=== PATIENT | female | born 1965 | race Two or more races ===

== ENCOUNTER 2017-07-28 12:02 | Observation (INO) | payer OTHER ==
[~2017-07-28] VITALS: Ht 157.5 cm; Wt 59.3 kg
[~2017-07-28 12:02] MED LIST changes: -PANT40 PO
[2017-07-29] MEDS ORDERED: PANT40 PO (15:31)
== END 2017-07-29 16:14 | disposition home or self-care (01) ==
LOC: ER 12:02 → MEDS 14:52
PROVIDERS: Internal Medicine Gastroenterology
PROC: 0D757ZZ Dilation of Esophagus, Via Natural or Artificial Opening (ICD-10-PCS; principal; 2017-07-29 07:00)
PROC: 0D598ZZ Destruction of Duodenum, Via Natural or Artificial Opening Endoscopic (ICD-10-PCS; principal; 2017-07-29 07:00)
DX: K22.2 Esophageal obstruction (principal); K31.811 Angiodysplasia of stomach and duodenum with bleeding; I10 Essential (primary) hypertension; F10.10 Alcohol abuse, uncomplicated; F17.210 Nicotine dependence, cigarettes, uncomplicated; Z88.1 Allergy status to other antibiotic agents; Z88.6 Allergy status to analgesic agent; Z88.0 Allergy status to penicillin; Z79.899 Other long term (current) drug therapy
CPT/HCPCS: 36415; 96374; 96375; 96376; 99285; C9113; G0378; J7050; J7120

== ENCOUNTER → 2017-07-28 | Outpatient (CLI) | payer OTHER ==
[~2017-07-28] MED LIST: CLIN150 PO; DIVA500EC PO; IBUP200 PO; NAPR375 PO; OXYACE7.5T PO; PANT40 PO; PROM25 PO; VERA120ERB PO
[2017-07-28 10:41] LABS: BASOPHILS ABSOLUTE AUTO 0.04 K/mm3 (0.00-0.23); BASOPHILS PERCENT AUTO 1 % (0-2); EOSINOPHILS PERCENT AUTO 0 % (0-6); Hematocrit 46.3 % (33.0-51.0); Hemoglobin 15.6 g/dL (11.5-16.0); IMMATURE GRAN ABSOLUTE AUTO 0.01 K/mm3 (0.00-0.10); IMMATURE GRAN PERCENT AUTO 0 % (0-1); LYMPHOCYTES ABSOLUTE AUTO 1.47 K/mm3 (0.84-5.20); LYMPHOCYTES PERCENT AUTO 28 % (21-46); MONOCYTES ABSOLUTE AUTO 0.47 K/mm3 (0.16-1.47); MONOCYTES PERCENT AUTO 9 % (4-13); Mean Corpuscular HGB Conc 33.7 g/dL (31.5-36.5); Mean Corpuscular Volume 92 fL (80-100); Mean Platelet Volume 10.1 fL (9.1-12.4); NEUTROPHILS ABSOLUTE AUTO 3.31 K/mm3 (1.96-9.15); NEUTROPHILS PERCENT AUTO 62 % (41-73); Platelet Count 230 K/mm3 (150-400); RDW Coefficient Variation 12.4 % (11.7-14.2); RDW Standard Deviation 41.5 fL (35.1-46.3); Red Blood Cell Count 5.03 M/mm3 (3.80-5.20)
[2017-07-28 10:50] LABS: Alanine Aminotransfer (ALT/SGP 24 U/L (12-78); Albumin, Blood 3.9 g/dL (3.4-5.0); Alk Phos 104 U/L (40-126); Anion Gap 8 mmol/L (6-16); Aspartate Aminotrans (AST/SGOT 13 U/L (12-37); Bilirubin, Total 0.4 mg/dL (0.1-1.0); Blood Urea Nitrogen 11 mg/dL (8-24); Bun/Creatinine Ratio 15.1 (12.0-20.0); CO2, Blood 31 mmol/L (21-32); Calcium, Blood 8.9 mg/dL (8.5-10.1); Chloride, Blood 104 mmol/L (98-108); Creatinine, Blood 0.73 mg/dL (0.40-1.00); Glomerular Filtration Rate >60 (60-); Glucose, Blood 86 mg/dL (70-99); Potassium, Blood 4.1 mmol/L (3.5-5.5); Sodium, Blood 143 mmol/L (136-145); Total Protein, Blood 7.9 g/dL (6.4-8.2)
== END | disposition home or self-care (01) ==
LOC: LAB SHORT 10:35 → LAB EV 10:35
PROVIDERS: Physician Assistant
DX: K92.0 Hematemesis (principal)
CPT/HCPCS: 80053; 85025

== ENCOUNTER 2020-05-03 09:40 | Observation (INO) | payer OTHER ==
[~2020-05-03] VITALS: Ht 157.5 cm; Wt 63.1 kg
[~2020-05-03 09:40] MED LIST changes: -DIVA500EC PO
[2020-05-03 10:47] LABS: BASOPHILS ABSOLUTE AUTO 0.04 K/mm3 (0.00-0.23); BASOPHILS PERCENT AUTO 1 % (0-2); EOSINOPHILS PERCENT AUTO 0 % (0-6); Hematocrit 47.8 % (33.0-51.0); Hemoglobin 15.9 g/dL (11.5-16.0); IMMATURE GRAN ABSOLUTE AUTO 0.01 K/mm3 (0.00-0.10); IMMATURE GRAN PERCENT AUTO 0 % (0-1); LYMPHOCYTES ABSOLUTE AUTO 1.48 K/mm3 (0.84-5.20); LYMPHOCYTES PERCENT AUTO 20 % (21-46); MONOCYTES ABSOLUTE AUTO 0.59 K/mm3 (0.16-1.47); MONOCYTES PERCENT AUTO 8 % (4-13); Mean Corpuscular HGB 30.8 pg (26.0-34.0); Mean Corpuscular HGB Conc 33.3 g/dL (31.5-36.5); Mean Corpuscular Volume 93 fL (80-100); Mean Platelet Volume 10.7 fL (9.1-12.4); NEUTROPHILS ABSOLUTE AUTO 5.25 K/mm3 (1.96-9.15); NEUTROPHILS PERCENT AUTO 71 % (41-73); Platelet Count 230 K/mm3 (150-400); RDW Coefficient Variation 12.2 % (11.7-14.2); RDW Standard Deviation 41.7 fL (35.1-46.3); Red Blood Cell Count 5.17 M/mm3 (3.80-5.20); White Blood Cell Count 7.37 K/mm3 (4.00-11.30)
[2020-05-03 11:03] LABS: Alanine Aminotransfer (ALT/SGP 26 U/L (12-78); Albumin, Blood 4.1 g/dL (3.4-5.0); Albumin/Globulin Ratio 1.1 (0.8-1.8); Alk Phos 91 U/L (50-136); Anion Gap 2 mmol/L (6-16); Aspartate Aminotrans (AST/SGOT 11 U/L (12-37); Bilirubin, Total 0.4 mg/dL (0.1-1.0); Blood Urea Nitrogen 11 mg/dL (8-24); Bun/Creatinine Ratio 19.5 (12.0-20.0); CO2, Blood 33 mmol/L (21-32); Calcium, Blood 9.3 mg/dL (8.5-10.1); Chloride, Blood 106 mmol/L (98-108); Creatinine, Blood 0.56 mg/dL (0.40-1.00); Globulin, Blood 3.7 g/dL (2.2-4.0); Glomerular Filtration Rate >60 (60-); Glucose, Blood 93 mg/dL (70-99); Potassium, Blood 3.7 mmol/L (3.5-5.5); Sodium, Blood 141 mmol/L (136-145); Total Protein, Blood 7.8 g/dL (6.4-8.2); Troponin I 0.094 ng/mL (0.000-0.040)
[2020-05-03] MEDS ORDERED: DEPAKOTE ER500 M1 PO (13:43)
[2020-05-03] MEDS ORDERED: PANT40 PO (13:43)
[2020-05-03] MEDS ORDERED: ATOR10 PO (13:44)
[2020-05-03] MEDS ORDERED: Buspirone HCl15 MG PO (13:44)
[2020-05-03] MEDS ORDERED: AMLO10 PO (13:44)
[2020-05-03] MEDS ORDERED: CALCIUM PO (13:45)
[2020-05-03 16:13] LABS: Adenovirus Not Detected (NOT DETECT); Coronavirus 229E Not Detected (NOT DETECT); Coronavirus HKU1 Not Detected (NOT DETECT); Coronavirus NL63 Not Detected (NOT DETECT); Coronavirus OC43 Not Detected (NOT DETECT); Human Metapneumovirus Not Detected (NOT DETECT); Human Rhinovirus/Enterovirus Not Detected (NOT DETECT); Influenza A/2009-H1 Not Detected (NOT DETECT); Influenza A/H1 Not Detected (NOT DETECT); Influenza A/H3 Not Detected (NOT DETECT); Influenza B Not Detected (NOT DETECT); Parainfluenza Virus 1 Not Detected (NOT DETECT); Parainfluenza Virus 2 Not Detected (NOT DETECT); Parainfluenza Virus 3 Not Detected (NOT DETECT); SARS-Cov-2 (COVID-19), BioFire Not Detected (NOT DETECT)
[2020-05-03 16:14] LABS: Bordetella pertussis Not Detected (NOT DETECT); Chlamydophila pneumoniae Not Detected (NOT DETECT); Mycoplasma pneumoniae Not Detected (NOT DETECT); Parainfluenza Virus 4 Not Detected (NOT DETECT); Respiratory Syncytial Virus Not Detected (NOT DETECT)
--- NOTE | 2020-05-03 18:00 | NUR ---
NEW ER ADMIT, ARRIVE TO RM 363 APPROX 1545. SHE IS A/O X4, STATE REASON FOR HOSP INCREASING SOB, PLEURITIC PAIN. STATE THOUGHT SHE WAS GETTING BRONCHITIS, STATES HX CHR BRONCHITIS APPROX 2 TIMES/YEAR. STATE BREATHING HAS IMPROVED FOLLOWING ER TX. DR JOHANSEN ORDER IV SOLUMEDROL 250 MG NOW, IV ANTIBX LEVAQUIN 750MG. PT DECLINE PNEUMO VAC. RESP PANEL NEGATIVE. LUNGS ARE SOMEWHAT COARSE W FAINT EXP WHEEZE, ORDER ALBUTEROL NEB. BIOX 90-94% RA. SHE STATE CHR NONPROD COUGH, STATE CURRENT EVERYDAY SMOKER. TROP MILDLY ELEVATED 0.082, ORDER TELE MX OVERNITE, HX MS & CARDIAC ABLATION 2008. PT IS SBA TO BR, GAIT STEADY. SHE STATE HX OSCAR HOWEVER DECLINES HOSP CPAP TONITE, RT BRING RELEASE FORM, SIGNED BY PT. VSS.
--- NOTE | 2020-05-04 04:49 | NUR ---
SUMMARY: A/OX4, CALLS APPROPRIATELY AND WAS SBA PER PT REQUEST FOR ASSIST W/IV POLE. D5 1/2 NS INFUSES AT 100 ML/HR. SHE OCC REPORTS VERY MILD STERNAL PAIN THAT RESOLVES SPONTANEOUSLY AND REQUIRES NO PRN MEDS. SHE'S DENIES ALL OTHER S/S RESP/CARDIAC DISTRESS AND TROPS HAVE TRENDED DOWNWARD. PT TYPICALLY WEARS HOME CPAP BUT REFUSED OURS AND TOLERATED RA W/SPO2 WNL. RESPS E/U AND NO S/S DYSPNEA. PT REMAINS NSR W/PVC'S AT 80'S-90'S BPM ON TELEMETRY. VSS/AFEBRILE AND NO ACUTE CHANGES. MED RECONCILIATION NEEDS COMPLETED W/PAPERWORK FAXED TO PHARMACY, WILL ENSURE DAY STAFF ARE AWARE. WCTM AND REPORT TO DAY RN.
[2020-05-04 04:56] LABS: BASOPHILS PERCENT AUTO 0 % (0-2); EOSINOPHILS PERCENT AUTO 0 % (0-6); Hemoglobin 14.1 g/dL (11.5-16.0); IMMATURE GRAN ABSOLUTE AUTO 0.02 K/mm3 (0.00-0.10); IMMATURE GRAN PERCENT AUTO 0 % (0-1); LYMPHOCYTES ABSOLUTE AUTO 0.43 K/mm3 (0.84-5.20); LYMPHOCYTES PERCENT AUTO 8 % (21-46); MONOCYTES ABSOLUTE AUTO 0.04 K/mm3 (0.16-1.47); MONOCYTES PERCENT AUTO 1 % (4-13); Mean Corpuscular HGB 29.6 pg (26.0-34.0); Mean Corpuscular Volume 92 fL (80-100); NEUTROPHILS ABSOLUTE AUTO 4.72 K/mm3 (1.96-9.15); NEUTROPHILS PERCENT AUTO 91 % (41-73); Platelet Count 198 K/mm3 (150-400); RDW Coefficient Variation 11.9 % (11.7-14.2); Red Blood Cell Count 4.77 M/mm3 (3.80-5.20); White Blood Cell Count 5.21 K/mm3 (4.00-11.30)
[2020-05-04 05:20] LABS: Alanine Aminotransfer (ALT/SGP 28 U/L (12-78); Albumin, Blood 3.5 g/dL (3.4-5.0); Alk Phos 79 U/L (50-136); Anion Gap 9 mmol/L (6-16); Aspartate Aminotrans (AST/SGOT 7 U/L (12-37); Bilirubin, Total 0.3 mg/dL (0.1-1.0); Blood Urea Nitrogen 13 mg/dL (8-24); Bun/Creatinine Ratio 22.9 (12.0-20.0); CO2, Blood 25 mmol/L (21-32); Calcium, Blood 8.9 mg/dL (8.5-10.1); Chloride, Blood 107 mmol/L (98-108); Creatinine, Blood 0.57 mg/dL (0.40-1.00); Globulin, Blood 3.6 g/dL (2.2-4.0); Glomerular Filtration Rate >60 (60-); Glucose, Blood 227 mg/dL (70-99); Potassium, Blood 3.9 mmol/L (3.5-5.5); Sodium, Blood 141 mmol/L (136-145); Total Protein, Blood 7.1 g/dL (6.4-8.2)
--- NOTE | 2020-05-04 18:35 | NUR ---
PT RESTING IN BED EATING DINNER AFTER MEDICATION ADMIN. PT IS ALERT AND ORIENTED X4, IV LINE WNL AND INFUSING. PT MADE NO COMPLAINTS OF STERNAL PAIN OR SOB THIS SHIFT. STAFF WILL CONT. TO MONITOR.
--- NOTE | 2020-05-04 22:39 | NUR ---
ADMIT: 05/03/20 DISCHARGE: DX: chest pain CC: [email or web address] PIERRE CALL: RESIDENCE: home CAREGIVER: PRAVEEN DING ([place]) DX: copd, hs myocardial infarct, htn, sleep apnea, smoker DME: no record CCM: no record HOME HEALTH: no record SUMMARY ADMIT 05/03/20 05/04/20 STRESS TEST AND CAT SCAN ORDERED BY DR BOB. ETA DISCHARGE PENDING TEST RESULTS Saturday. MET WITH PATIENT, DISCUSSED CARE COORDINATION, WILL FOLLOW FOR DISCHARGE PLANNING. CP ASSESSMENT AND RECOMMENDATIONS: 1. Pleuritic chest pain. The patient has been noted to have a mild bump in her troponin. She does not have hypoxemia. She does not have infiltrate. She does give a history that is certainly suggestive of infection given her history of rigors and myalgia. We will follow through with echocardiogram. Empiric antibiotic therapy has been added pending result of all her followup testing. Disposition will be made tomorrow in this regard. 2. Chronic obstructive pulmonary disease. Bronchodilators and Solu-Medrol were given,
[2020-05-05] MEDS ORDERED: ALBU90OI INH (03:29)
[2020-05-05] MEDS ORDERED: CODACE30 PO (03:32)
--- NOTE | 2020-05-05 03:54 | NUR ---
SHIFT SUMMARY PATIENT HAD NO ACUTE CHANGES OBSERVED. AXOX 3 AND INDEPENDENT IN ROOM. PIV REMAINS INTACT. D5 1/2 NS INFUSING AT 100 mL/HR. VSS/AFEBRILE. DENIES CHEST PAIN, SOB, AND N/V. FRETTED INSTRUMENTS INSPECTOR REPORTS NSR @ 85. IV SOLU-MEDROL GIVEN PER EMAR. COOPERATIVE WITH CARE. CALL LIGHT IN REACH. BED IN LOWEST POSITION. WILL CONTINUE TO MONITOR UNTIL DAY SHIFT NURSE ASSUMES CARE.
[2020-05-05 05:05] LABS: BASOPHILS ABSOLUTE AUTO 0.03 K/mm3 (0.00-0.23); BASOPHILS PERCENT AUTO 0 % (0-2); EOSINOPHILS PERCENT AUTO 0 % (0-6); Hematocrit 40.7 % (33.0-51.0); Hemoglobin 13.4 g/dL (11.5-16.0); IMMATURE GRAN PERCENT AUTO 1 % (0-1); LYMPHOCYTES ABSOLUTE AUTO 0.71 K/mm3 (0.84-5.20); LYMPHOCYTES PERCENT AUTO 4 % (21-46); MONOCYTES ABSOLUTE AUTO 0.63 K/mm3 (0.16-1.47); MONOCYTES PERCENT AUTO 4 % (4-13); Mean Corpuscular HGB 30.7 pg (26.0-34.0); Mean Corpuscular HGB Conc 32.9 g/dL (31.5-36.5); Mean Corpuscular Volume 93 fL (80-100); Mean Platelet Volume 11.4 fL (9.1-12.4); NEUTROPHILS ABSOLUTE AUTO 15.39 K/mm3 (1.96-9.15); NEUTROPHILS PERCENT AUTO 91 % (41-73); Platelet Count 198 K/mm3 (150-400); RDW Coefficient Variation 12.4 % (11.7-14.2); RDW Standard Deviation 42.7 fL (35.1-46.3); Red Blood Cell Count 4.37 M/mm3 (3.80-5.20); White Blood Cell Count 16.86 K/mm3 (4.00-11.30)
[2020-05-05 05:30] LABS: Anion Gap 6 mmol/L (6-16); Blood Urea Nitrogen 12 mg/dL (8-24); CO2, Blood 27 mmol/L (21-32); Calcium, Blood 8.7 mg/dL (8.5-10.1); Chloride, Blood 109 mmol/L (98-108); Creatinine, Blood 0.52 mg/dL (0.40-1.00); Glomerular Filtration Rate >60 (60-); Glucose, Blood 155 mg/dL (70-99); Magnesium, Blood 2.2 mg/dL (1.6-2.4); Potassium, Blood 3.9 mmol/L (3.5-5.5); Sodium, Blood 142 mmol/L (136-145)
[2020-05-05] MEDS ORDERED: LEVO750 PO (16:52)
[2020-05-05] MEDS ORDERED: DIVA500ER PO (16:52)
[2020-05-05] MEDS ORDERED: PRED20 PO (16:53)
--- NOTE | 2020-05-05 18:26 | NUR ---
05/05/[address] Richard, Follow up [place] peoples office or by telephone. no telehealth. No [place] follow up appt. Patient has ride from [place], can pickle cutter new meds if needed. Has insurance through [facility] that covers her meds and medical. Does not need medical equipment in the home. Please call her for transition of care at home. cp
--- NOTE | 2020-05-05 19:17 | NUR ---
PATIENT DISCHARGE: PATIENT DISCHARGED TO HOME THIS SHIFT. MEDICATION RECONCILIATION COMPLETED; MED LSIT CALLED TO [facility]. DISCHARGE EDUCATION COMPLETED WITH PATIENT. PATIENT TRANSPORTED TO EXIT BY [facility] STAFF WITH WHEELCHAIR AT 1800. PATIENT DEPARTED [facility] VIA PRIVATE AUTO.
== END 2020-05-05 18:15 | disposition home or self-care (01) ==
LOC: ER 09:40 → MEDS 09:41
PROVIDERS: Emergency Medicine; Hospitalist; ADMIT Internal Medicine
DX: R07.81 Pleurodynia (principal); R77.8 Other specified abnormalities of plasma proteins; J44.1 Chronic obstructive pulmonary disease with (acute) exacerbation; I10 Essential (primary) hypertension; I25.10 Atherosclerotic heart disease of native coronary artery without angina pectoris; G47.33 Obstructive sleep apnea (adult) (pediatric); G40.909 Epilepsy, unspecified, not intractable, without status epilepticus; F17.200 Nicotine dependence, unspecified, uncomplicated; F41.9 Anxiety disorder, unspecified; E78.5 Hyperlipidemia, unspecified; K21.9 Gastro-esophageal reflux disease without esophagitis; J98.11 Atelectasis; Z88.6 Allergy status to analgesic agent; Z88.1 Allergy status to other antibiotic agents; Z88.0 Allergy status to penicillin; Z88.8 Allergy status to other drugs, medicaments and biological substances; Z95.1 Presence of aortocoronary bypass graft; Z79.899 Other long term (current) drug therapy; Z20.822 Contact with and (suspected) exposure to COVID-19
CPT/HCPCS: 0202U; 36415; 71045; 71047; 71260; 78452; 80048; 80053; 83735; 84145; 84484; 85025; 85379; 87040; 93005; 93010; 93017; 93306; 94640; 96365; 96366; 96372; 96375; 96376; 99285-25; A9270; A9500; G0378; J0280; J1650; J1956; J2785; J2920; J2930; J7042; Q9967

== ENCOUNTER 2020-06-21 10:45 | Emergency (ER) | payer OTHER ==
[~2020-06-21] VITALS: Ht 157.5 cm; Wt 61.2 kg
[~2020-06-21 10:45] MED LIST changes: +ALBU90OI INH; +AMLO10 PO; +ATOR10 PO; +Buspirone HCl15 MG PO; +CALCIUM PO; +CODACE30 PO; +DEPAKOTE ER500 M1 PO; +DIVA500ER PO; +LEVO750 PO; +PANT40 PO; +PRED20 PO
[2020-06-21 11:16] LABS: BASOPHILS ABSOLUTE AUTO 0.04 K/mm3 (0.00-0.23); BASOPHILS PERCENT AUTO 1 % (0-2); EOSINOPHILS PERCENT AUTO 0 % (0-6); Hematocrit 45.4 % (33.0-51.0); IMMATURE GRAN ABSOLUTE AUTO 0.01 K/mm3 (0.00-0.10); IMMATURE GRAN PERCENT AUTO 0 % (0-1); LYMPHOCYTES ABSOLUTE AUTO 1.64 K/mm3 (0.84-5.20); LYMPHOCYTES PERCENT AUTO 22 % (21-46); MONOCYTES ABSOLUTE AUTO 0.57 K/mm3 (0.16-1.47); MONOCYTES PERCENT AUTO 8 % (4-13); Mean Corpuscular HGB 30.7 pg (26.0-34.0); Mean Corpuscular Volume 93 fL (80-100); Mean Platelet Volume 10.6 fL (9.1-12.4); NEUTROPHILS ABSOLUTE AUTO 5.35 K/mm3 (1.96-9.15); NEUTROPHILS PERCENT AUTO 70 % (41-73); Platelet Count 211 K/mm3 (150-400); RDW Coefficient Variation 11.9 % (11.7-14.2); RDW Standard Deviation 40.7 fL (35.1-46.3); Red Blood Cell Count 4.89 M/mm3 (3.80-5.20); White Blood Cell Count 7.61 K/mm3 (4.00-11.30)
[2020-06-21 11:47] LABS: Alanine Aminotransfer (ALT/SGP 20 U/L (12-78); Albumin, Blood 3.9 g/dL (3.4-5.0); Albumin/Globulin Ratio 1.1 (0.8-1.8); Alk Phos 97 U/L (50-136); Anion Gap 1 mmol/L (6-16); Aspartate Aminotrans (AST/SGOT 10 U/L (12-37); Bilirubin, Total 0.2 mg/dL (0.1-1.0); Blood Urea Nitrogen 12 mg/dL (8-24); Bun/Creatinine Ratio 19.6 (12.0-20.0); CO2, Blood 35 mmol/L (21-32); Calcium, Blood 9.4 mg/dL (8.5-10.1); Chloride, Blood 106 mmol/L (98-108); Creatinine, Blood 0.61 mg/dL (0.40-1.00); Globulin, Blood 3.6 g/dL (2.2-4.0); Glomerular Filtration Rate >60 (60-); Glucose, Blood 108 mg/dL (70-99); Potassium, Blood 3.9 mmol/L (3.5-5.5); Sodium, Blood 142 mmol/L (136-145); Total Protein, Blood 7.5 g/dL (6.4-8.2)
[2020-06-21] MEDS ORDERED: PROM25 PO (11:59)
[2020-06-21] MEDS ORDERED: MECL25 PO (11:59)
== END 2020-06-21 12:34 | disposition home or self-care (01) ==
LOC: ER 10:45
PROVIDERS: Emergency Medicine
DX: H81.10 Benign paroxysmal vertigo, unspecified ear (principal); Z79.899 Other long term (current) drug therapy; Z79.52 Long term (current) use of systemic steroids
CPT/HCPCS: 36415; 70450; 80053; 85025; 93005; 93010; 99284-25; A9270

== ENCOUNTER 2021-07-23 17:30 | Emergency (ER) | payer OTHER ==
[~2021-07-23] VITALS: Ht 157.5 cm; Wt 61.2 kg
[~2021-07-23 17:30] MED LIST changes: +MECL25 PO
[2021-07-23 18:26] LABS: BASOPHILS ABSOLUTE AUTO 0.01 K/mm3 (0.00-0.23); BASOPHILS PERCENT AUTO 0 % (0-2); EOSINOPHILS PERCENT AUTO 0 % (0-6); Hematocrit 48.1 % (33.0-51.0); Hemoglobin 15.8 g/dL (11.5-16.0); IMMATURE GRAN ABSOLUTE AUTO 0.02 K/mm3 (0.00-0.10); IMMATURE GRAN PERCENT AUTO 0 % (0-1); LYMPHOCYTES ABSOLUTE AUTO 0.59 K/mm3 (0.84-5.20); LYMPHOCYTES PERCENT AUTO 8 % (21-46); MONOCYTES ABSOLUTE AUTO 0.15 K/mm3 (0.16-1.47); MONOCYTES PERCENT AUTO 2 % (4-13); Mean Corpuscular HGB 29.8 pg (26.0-34.0); Mean Corpuscular HGB Conc 32.8 g/dL (31.5-36.5); Mean Corpuscular Volume 91 fL (80-100); Mean Platelet Volume 10.6 fL (9.1-12.4); NEUTROPHILS ABSOLUTE AUTO 7.04 K/mm3 (1.96-9.15); NEUTROPHILS PERCENT AUTO 90 % (41-73); Platelet Count 264 K/mm3 (150-400); RDW Coefficient Variation 12.6 % (11.7-14.2); RDW Standard Deviation 41.5 fL (35.1-46.3); Red Blood Cell Count 5.31 M/mm3 (3.80-5.20); White Blood Cell Count 7.81 K/mm3 (4.00-11.30)
[2021-07-23 18:37] LABS: Alanine Aminotransfer (ALT/SGP 22 U/L (12-78); Albumin, Blood 3.5 g/dL (3.4-5.0); Albumin/Globulin Ratio 0.8 (0.8-1.8); Alk Phos 93 U/L (50-136); Anion Gap 3 mmol/L (6-16); Aspartate Aminotrans (AST/SGOT 26 U/L (12-37); Bilirubin, Total 0.4 mg/dL (0.1-1.0); Blood Urea Nitrogen 12 mg/dL (8-24); Bun/Creatinine Ratio 23.4 (12.0-20.0); CO2, Blood 32 mmol/L (21-32); Chloride, Blood 100 mmol/L (98-108); Creatinine, Blood 0.51 mg/dL (0.40-1.00); Globulin, Blood 4.2 g/dL (2.2-4.0); Glomerular Filtration Rate >60 (60-); Glucose, Blood 221 mg/dL (70-99); Potassium, Blood 4.7 mmol/L (3.5-5.5); Sodium, Blood 135 mmol/L (136-145); Total Protein, Blood 7.7 g/dL (6.4-8.2)
[2021-07-23 20:12] LABS: Source, Urine Clean Catch
[2021-07-23] MEDS ORDERED: AMLO10 PO (20:16)
[2021-07-23] MEDS ORDERED: GABA300 PO (20:17)
[2021-07-23] MEDS ORDERED: AZIT250 PO (20:19)
[2021-07-23 20:33] LABS: Bilirubin, Urine Neg (Neg); Blood, Urine Neg (Neg); Glucose Qualitative, Urine Neg (Neg); Ketones, Urine Neg (Neg); Leukocyte Esterase, Urine Neg (Neg); Nitrite, Urine Neg (Neg); Protein, Urine Neg (Neg); Specific Gravity, Urine 1.005 (1.003-1.022); Urobilinogen, Urine NORM (Normal)
[2021-07-23 20:34] LABS: Appearance, Urine Clear (Clear); Color, Urine Yellow (P-Yellow)
[2021-07-23] MEDS ORDERED: Prednisone50 MG PO (22:48)
== END 2021-07-23 23:36 | disposition home or self-care (01) ==
LOC: ER 17:30
PROVIDERS: Physician Assistant
DX: J44.0 Chronic obstructive pulmonary disease with (acute) lower respiratory infection (principal); J20.9 Acute bronchitis, unspecified; I10 Essential (primary) hypertension; I25.2 Old myocardial infarction; F17.200 Nicotine dependence, unspecified, uncomplicated; Z88.0 Allergy status to penicillin; Z88.1 Allergy status to other antibiotic agents; Z88.6 Allergy status to analgesic agent; Z79.899 Other long term (current) drug therapy; Z79.52 Long term (current) use of systemic steroids
CPT/HCPCS: 36415; 71045; 80053; 81003; 83690; 85025; 93005; 93010; 94644; 94664; 96374; 96375; 99284-25; J2405; J2930; J3475

== ENCOUNTER 2022-03-07 08:28 | Emergency (ER) | payer OTHER ==
[~2022-03-07] VITALS: Ht 157.5 cm; Wt 60.3 kg
[~2022-03-07 08:28] MED LIST changes: +AZIT250 PO; +GABA300 PO; +Prednisone20 MG PO; +Prednisone50 MG PO; +Zithromax250 MG PO
[2022-03-07 09:20] LABS: BASOPHILS ABSOLUTE AUTO 0.04 K/mm3 (0.00-0.23); BASOPHILS PERCENT AUTO 1 % (0-2); EOSINOPHILS ABSOLUTE AUTO 0.05 K/mm3 (0.00-0.68); EOSINOPHILS PERCENT AUTO 1 % (0-6); Hematocrit 43.7 % (33.0-51.0); Hemoglobin 14.8 g/dL (11.5-16.0); IMMATURE GRAN ABSOLUTE AUTO 0.02 K/mm3 (0.00-0.10); IMMATURE GRAN PERCENT AUTO 0 % (0-1); LYMPHOCYTES ABSOLUTE AUTO 1.01 K/mm3 (0.84-5.20); LYMPHOCYTES PERCENT AUTO 17 % (21-46); MONOCYTES PERCENT AUTO 13 % (4-13); Mean Corpuscular HGB Conc 33.9 g/dL (31.5-36.5); Mean Corpuscular Volume 92 fL (80-100); Mean Platelet Volume 10.4 fL (9.1-12.4); NEUTROPHILS ABSOLUTE AUTO 4.07 K/mm3 (1.96-9.15); NEUTROPHILS PERCENT AUTO 68 % (41-73); Platelet Count 169 K/mm3 (150-400); RDW Coefficient Variation 12.6 % (11.7-14.2); RDW Standard Deviation 42.3 fL (35.1-46.3); Red Blood Cell Count 4.77 M/mm3 (3.80-5.20); White Blood Cell Count 5.99 K/mm3 (4.00-11.30)
[2022-03-07 09:39] LABS: Albumin, Blood 3.1 g/dL (3.4-5.0); Albumin/Globulin Ratio 0.9 (0.8-1.8); Bilirubin, Total 0.5 mg/dL (0.1-1.0); Calcium, Blood 8.6 mg/dL (8.5-10.1); Creatinine, Blood 0.6 mg/dL (0.40-1.00); Globulin, Blood 3.5 g/dL (2.2-4.0); Potassium, Blood 4.3 mmol/L (3.5-5.5); Total Protein, Blood 6.6 g/dL (6.4-8.2)
[2022-03-07 09:46] LABS: Base Excess Venous 8.7 mmol/L; PCO2 Venous 47.9 mmHg (38-42); pH Blood Venous 7.44 (7.34-7.37)
[2022-03-07 10:35] LABS: Influenza B, PCR NEGATIVE (NEGATIVE); Resp Syncytial Virus, PCR NEGATIVE (NEGATIVE); SARS-Cov-2 (COVID-19) PCR, MMC NEGATIVE (NEGATIVE)
[2022-03-07 10:37] LABS: Influenza A, PCR POSITIVE (NEGATIVE)
[2022-03-07] MEDS ORDERED: BENZ100A PO (11:46)
[2022-03-07] MEDS ORDERED: PRED20 PO (11:46)
[2022-03-07] MEDS ORDERED: OSEL75CA PO (11:46)
== END 2022-03-07 12:43 | disposition home or self-care (01) ==
LOC: ER 08:28
PROVIDERS: Student in an Organized Health Care Education/Training Program
DX: J10.1 Influenza due to other identified influenza virus with other respiratory manifestations (principal); J44.1 Chronic obstructive pulmonary disease with (acute) exacerbation; I10 Essential (primary) hypertension; F17.200 Nicotine dependence, unspecified, uncomplicated; Z88.0 Allergy status to penicillin; Z88.1 Allergy status to other antibiotic agents; Z88.8 Allergy status to other drugs, medicaments and biological substances; Z79.899 Other long term (current) drug therapy; Z20.822 Contact with and (suspected) exposure to COVID-19
CPT/HCPCS: 0241U; 36415; 71045; 80053; 82803; 83880; 84484; 85025; 93005; 93010; 94640; 94644; 94664; A9270; J1885; J7030; J7512

== ENCOUNTER 2024-05-02 19:29 | Emergency (ER) | payer OTHER ==
[~2024-05-02] VITALS: Ht 157.5 cm; Wt 71.7 kg
[~2024-05-02 19:29] MED LIST changes: +BENZ100A PO; +BUSPIRONE HCL30 M1 PO; +DOXY100 PO; +OSEL75CA PO; +TRELEGY ELLIPTA INH; +Ventolin/Proventil INH; +[UNRECOGNIZED DRUG - OTHER] INH
[2024-05-02 20:08] LABS: BASOPHILS ABSOLUTE AUTO 0.01 K/mm3 (0.00-0.23); BASOPHILS PERCENT AUTO 0 % (0-2); EOSINOPHILS PERCENT AUTO 0 % (0-6); Hematocrit 50.1 % (33.0-51.0); Hemoglobin 16.6 g/dL (11.5-16.0); IMMATURE GRAN ABSOLUTE AUTO 0.02 K/mm3 (0.00-0.10); IMMATURE GRAN PERCENT AUTO 0 % (0-1); LYMPHOCYTES ABSOLUTE AUTO 1.21 K/mm3 (0.84-5.20); LYMPHOCYTES PERCENT AUTO 17 % (21-46); MONOCYTES ABSOLUTE AUTO 0.45 K/mm3 (0.16-1.47); MONOCYTES PERCENT AUTO 6 % (4-13); Mean Corpuscular HGB 29.6 pg (26.0-34.0); Mean Corpuscular HGB Conc 33.1 g/dL (31.5-36.5); Mean Corpuscular Volume 89 fL (80-100); Mean Platelet Volume 10.1 fL (9.1-12.4); NEUTROPHILS ABSOLUTE AUTO 5.66 K/mm3 (1.96-9.15); NEUTROPHILS PERCENT AUTO 77 % (41-73); Platelet Count 250 K/mm3 (150-400); Red Blood Cell Count 5.61 M/mm3 (3.80-5.20); White Blood Cell Count 7.35 K/mm3 (4.00-11.30)
[2024-05-02 20:37] LABS: Free Thyroxine 0.75 ng/dL (0.70-1.60); Magnesium, Blood 2.2 mg/dL (1.6-2.4)
[2024-05-02 20:42] LABS: Albumin, Blood 3.4 g/dL (3.4-5.0); Albumin/Globulin Ratio 0.8 (0.8-1.8); Bilirubin, Total 0.4 mg/dL (0.1-1.0); Bun/Creatinine Ratio 21.3 (12.0-20.0); Calcium, Blood 8.6 mg/dL (8.5-10.1); Creatinine, Blood 0.61 mg/dL (0.40-1.00); Globulin, Blood 4.1 g/dL (2.2-4.0); Potassium, Blood 4.3 mmol/L (3.5-5.5); Thyroid Stimulating Hormone 1.13 uIU/mL (0.360-4.800); Total Protein, Blood 7.5 g/dL (6.4-8.2)
[2024-05-02 23:00] VITALS: BP 128/87
== END 2024-05-02 23:20 | disposition home or self-care (01) ==
LOC: ER 19:29
PROVIDERS: Student in an Organized Health Care Education/Training Program
DX: R41.0 Disorientation, unspecified (principal); J44.89 Other specified chronic obstructive pulmonary disease; G47.33 Obstructive sleep apnea (adult) (pediatric); I10 Essential (primary) hypertension; I25.2 Old myocardial infarction; G40.909 Epilepsy, unspecified, not intractable, without status epilepticus; Z99.89 Dependence on other enabling machines and devices; Z88.0 Allergy status to penicillin; Z88.6 Allergy status to analgesic agent; Z88.1 Allergy status to other antibiotic agents; Z79.899 Other long term (current) drug therapy
CPT/HCPCS: 80053; 83735; 84439; 84443; 85025; 93005; 93010; 99285-25

== ENCOUNTER 2024-06-30 15:20 | Inpatient (IN) | payer OTHER ==
[~2024-06-30] VITALS: Ht 157.5 cm; Wt 77.4 kg
[2024-06-30 16:32] LABS: BASOPHILS ABSOLUTE AUTO 0.02 K/mm3 (0.00-0.23); BASOPHILS PERCENT AUTO 0 % (0-2); EOSINOPHILS ABSOLUTE AUTO 0.01 K/mm3 (0.00-0.68); EOSINOPHILS PERCENT AUTO 0 % (0-6); Hematocrit 51.8 % (33.0-51.0); Hemoglobin 16.7 g/dL (11.5-16.0); IMMATURE GRAN ABSOLUTE AUTO 0.01 K/mm3 (0.00-0.10); IMMATURE GRAN PERCENT AUTO 0 % (0-1); LYMPHOCYTES ABSOLUTE AUTO 1.27 K/mm3 (0.84-5.20); LYMPHOCYTES PERCENT AUTO 28 % (21-46); MONOCYTES ABSOLUTE AUTO 0.38 K/mm3 (0.16-1.47); MONOCYTES PERCENT AUTO 9 % (4-13); Mean Corpuscular HGB 28.9 pg (26.0-34.0); Mean Corpuscular HGB Conc 32.2 g/dL (31.5-36.5); Mean Corpuscular Volume 90 fL (80-100); NEUTROPHILS ABSOLUTE AUTO 2.79 K/mm3 (1.96-9.15); NEUTROPHILS PERCENT AUTO 62 % (41-73); RDW Coefficient Variation 14.7 % (11.7-14.2); RDW Standard Deviation 48.6 fL (35.1-46.3); Red Blood Cell Count 5.78 M/mm3 (3.80-5.20); White Blood Cell Count 4.48 K/mm3 (4.00-11.30)
[2024-06-30 16:52] LABS: Platelet Count 200 K/mm3 (150-400)
[2024-06-30 16:53] LABS: Albumin, Blood 3.3 g/dL (3.4-5.0); Albumin/Globulin Ratio 0.9 (0.8-1.8); Bilirubin, Total 0.5 mg/dL (0.1-1.0); Bun/Creatinine Ratio 10.1 (12.0-20.0); Calcium, Blood 8.8 mg/dL (8.5-10.1); Creatinine, Blood 0.59 mg/dL (0.40-1.00); Globulin, Blood 3.8 g/dL (2.2-4.0); Potassium, Blood 3.9 mmol/L (3.5-5.5); Total Protein, Blood 7.1 g/dL (6.4-8.2)
[2024-06-30] MEDS ORDERED: Albuterol 2.5 MG/3 ML VIAL INH SCH (18:20)
[2024-06-30] MEDS ORDERED: Ipratropium Bromide INH 0.02% 0.5 mg/2.5ML Vial INH SCH (18:20)
[2024-06-30] MEDS ORDERED: Azithromycin 500 MG in NS 250 ML IV ONE (20:45)
[2024-06-30] MEDS ORDERED: NS 1,000 ML IV SCH (21:20)
[2024-06-30] MEDS ORDERED: Ondansetron HCl 2 MG / ML 2ML Vial IV PRN (21:20)
[2024-06-30] MEDS ORDERED: FLU VACC TS2024-25(6MOS UP)/PF 45 MCG/0.5 ML SYRINGE IM ONE (21:25)
[2024-06-30] MEDS ORDERED: Ipratropium/Albuterol SulF 2.5-0.5MG/3 ML Amp INH SCH (21:25)
[2024-06-30] MEDS ORDERED: Albuterol 2.5 MG/3 ML VIAL INH PRN (21:25)
[2024-06-30 23:06] LABS: Base Excess Venous 8.7 mmol/L; Bicarbonate Venous 28.8 mmol/L (24.0-30.0); pH Blood Venous 7.25 (7.34-7.37)
[2024-07-01] VITALS (8 sets, daily range): BP systolic 115–137; BP diastolic 66–90
[2024-07-01] MEDS ORDERED: MethylPREDNISolone Sod Succ 125 MG Vial IV SCH
--- NOTE | 2024-07-01 02:09 | NUR ---
ASSUMPTION OF CARE @ APPROX 2336 06/30 REPORT RECIVED BY THIS RN FROM MEDICAL FLOOR RN, FIDE, PT SLIDE OVER BY MEDICAL STAFF, PT PLACED ON BIPAP UPON ARRIVAL TO UNIT, VSS, PT FORGETFULL/MOVING ALL EXTREMITIES EQUALLY AND WITH PURPOSE/PT HAVING TEMORS IN ALL EXTREMITIES THAT APEAR TO WORSEN WITH ACTIVITY, PT IS SOMNULENT BUT EASILY AWAKENS TO VERBAL STIMULI, ABLE TO ANSWER ALL THE ORIENTATION QUETIONS, ABLE TO MAKE NEEDS KNOWN, OBYES COMMANDS, LUNG SOUND CLEAR WITH DIM BASES.
[2024-07-01 04:47] LABS: Hematocrit 52.6 % (33.0-51.0); Hemoglobin 16.2 g/dL (11.5-16.0); Mean Corpuscular HGB Conc 30.8 g/dL (31.5-36.5); Mean Corpuscular Volume 91 fL (80-100); Mean Platelet Volume 10.2 fL (9.1-12.4); Platelet Count 229 K/mm3 (150-400); RDW Coefficient Variation 14.2 % (11.7-14.2); RDW Standard Deviation 47.7 fL (35.1-46.3); Red Blood Cell Count 5.78 M/mm3 (3.80-5.20); White Blood Cell Count 5.64 K/mm3 (4.00-11.30)
[2024-07-01 05:18] LABS: Bun/Creatinine Ratio 25.5 (12.0-20.0); Calcium, Blood 8.5 mg/dL (8.5-10.1); Creatinine, Blood 0.51 mg/dL (0.40-1.00); Potassium, Blood 4.4 mmol/L (3.5-5.5)
[2024-07-01 05:41] LABS: Base Excess Venous 10.1 mmol/L; Bicarbonate Venous 30.1 mmol/L (24.0-30.0); PCO2 Venous 80.2 mmHg (38-42)
[2024-07-01 05:44] LABS: pH Blood Venous 7.27 (7.34-7.37)
[2024-07-01] MEDS ORDERED: Pantoprazole Sodium 40 MG Tab PO SCH (06:00)
--- NOTE | 2024-07-01 06:12 | NUR ---
SHIFT SUMMARY PT IS SOMNULENT BUT EASILY AWAKENS TO VERBAL STIMULI, ORIENTED X4, ABLE TO MAKE NEEDS KNOWN, OBEYS COMMANDS, MOVING ALL EXTREMITIES WITH PURPOSE, PT IS FORGETFUL AT TIMES, BED ALARM ACTIVE, 2 PERSON ASSIST TO BSC WITH FWW WITH GAIT BELT, PT TREMULOUS THAT SEEMS TO WORSEN WITH ACTIVITY. CONTINUOUS SPO2, SPO2 GREATER 90% ON BIPAP 14/7/40% OR 3 L O2 VIA NC, BASELINE PT USES 2L O2 VIA NC, LUNGS SOUND CLEAR T/O WITH DIM BASES. CONTINUOUS TELE MONITORING, SINUS/SINUS TACH 90-100 S, BP STABLE WITH MAP GREATER THAN 65, PULSES PRESENT T/O. BOWEL TONES PRESENT IN ALL 4Q, ABD APPEARS MODERALTY DISTENDED PT USING BSC TO VOID, URINE NYASIA IN COLOR. BED LOWEST POSITION, CALL LIGHT IN REACH, AWAITING TO GIVE REPORT TO ONCOMING RN.
--- NOTE | 2024-07-01 07:30 | NUR ---
ASSUMPTION NOTE: THIS RN TO ASSUME CARE. PATIENT WAS GETTING A BREATHING TREATMENT WITH RT UPON WALKING IN. VITAL SIGNS TAKEN & PATIENT STABLE. PATIENT HAS CALL LIGHT WITHIN REACH & BED IN LOWEST POSITION. STATING NOTHING IS NEEDED AT THIS TIME
[2024-07-01] MEDS ORDERED: Gabapentin 300 MG Cap PO SCH (09:00)
[2024-07-01] MEDS ORDERED: Enoxaparin 40 MG/0.4 ML SYR SC SCH (09:00)
[2024-07-01] MEDS ORDERED: AmLODIPine Besylate 5 MG Tab PO SCH (09:00)
[2024-07-01] MEDS ORDERED: Lactobacil 2-S.Thermo-Bifido 1 1 Cap PO SCH (09:00)
[2024-07-01] MEDS ORDERED: Divalproex Sodium 500 MG TABCR PO SCH (09:00)
[2024-07-01] MEDS ORDERED: BusPIRone HCl 10 MG Tab PO SCH (09:00)
[2024-07-01] MEDS ORDERED: Atorvastatin 10 MG Tab PO SCH (09:00)
[2024-07-01 10:17] LABS: Base Excess Venous 9.8 mmol/L; Bicarbonate Venous 30.4 mmol/L (24.0-30.0); PCO2 Venous 71.2 mmHg (38-42); pH Blood Venous 7.31 (7.34-7.37)
[2024-07-01 16:48] LABS: Base Excess Venous 11.6 mmol/L; Bicarbonate Venous 32.7 mmol/L (24.0-30.0)
[2024-07-01 16:49] LABS: PCO2 Venous 59.6 mmHg (38-42)
--- NOTE | 2024-07-01 17:08 | NUR ---
END OF SHIFT SUMMARY: PATIENT IS ALERT AND ORIETNED X4, IS SOMULENT AT TIMES & FORGETFUL. PATIENT FIXATES AND OFTEN REPEATS HERSELF WHEN ANSWERING QUESTIONS. IS ON TELE SHOWING SINUS RYTHM TO SINUS TACH 90-110. SATTING >92% 3 LITERS VIA NASAL CANNULA WHEN SHE IS NOT WEARING THE BIPAP MACHINE AT 14/7 40% FIO2. PATIENT IS GETTING IV SOLUMEDROL. PATIENT GOT AN ECHO DONE AND AWAITING RESULTS CURRENTLY. PATIENT WAS ABLE TO GET SOME REST, HAD A BED BATH. PATIENT HAD FAMILY THORUGHOUT SHIFT AT BEDSIDE AND CALL FOR UPDATES. PATIENT HAS CALL LIGHT WITHIN REACH & BED IN LOWEST POSITION, STATING NOTHING IS NEEDED AT THIS TIME.
[2024-07-01 19:03] LABS: U Amphetamine Screen Not Detected; U Barbituate Screen Not Detected; U Benzodiazapine Screen Not Detected; U Buprenorphine Screen Not Detected; U Cannabinoids Screen Not Detected; U Cocaine Screen Not Detected; U Methadone Screen Not Detected; U Methamphetamine Screen Not Detected; U Opiates Screen Not Detected; U Oxycodone Screen Not Detected; U Phencyclidine Screen Not Detected
[2024-07-01] MEDS ORDERED: Azithromycin 500 MG in NS 250 ML IV SCH (21:00)
[2024-07-02 03:30] VITALS: BP 119/79
[2024-07-02 03:39] LABS: Base Excess Venous 11.9 mmol/L; Bicarbonate Venous 33.4 mmol/L (24.0-30.0); PCO2 Venous 55.6 mmHg (38-42); pH Blood Venous 7.42 (7.34-7.37)
[2024-07-02 04:06] LABS: BASOPHILS ABSOLUTE AUTO 0.01 K/mm3 (0.00-0.23); BASOPHILS PERCENT AUTO 0 % (0-2); EOSINOPHILS PERCENT AUTO 0 % (0-6); Hematocrit 46.5 % (33.0-51.0); Hemoglobin 14.5 g/dL (11.5-16.0); IMMATURE GRAN ABSOLUTE AUTO 0.09 K/mm3 (0.00-0.10); IMMATURE GRAN PERCENT AUTO 1 % (0-1); LYMPHOCYTES ABSOLUTE AUTO 0.48 K/mm3 (0.84-5.20); LYMPHOCYTES PERCENT AUTO 4 % (21-46); MONOCYTES ABSOLUTE AUTO 0.42 K/mm3 (0.16-1.47); MONOCYTES PERCENT AUTO 3 % (4-13); Mean Corpuscular HGB 28.5 pg (26.0-34.0); Mean Corpuscular HGB Conc 31.2 g/dL (31.5-36.5); Mean Corpuscular Volume 92 fL (80-100); Mean Platelet Volume 10.3 fL (9.1-12.4); NEUTROPHILS ABSOLUTE AUTO 12.21 K/mm3 (1.96-9.15); NEUTROPHILS PERCENT AUTO 92 % (41-73); Platelet Count 202 K/mm3 (150-400); RDW Coefficient Variation 14.5 % (11.7-14.2); RDW Standard Deviation 48.5 fL (35.1-46.3); Red Blood Cell Count 5.08 M/mm3 (3.80-5.20); White Blood Cell Count 13.21 K/mm3 (4.00-11.30)
[2024-07-02 04:30] LABS: Bun/Creatinine Ratio 29.8 (12.0-20.0); Creatinine, Blood 0.47 mg/dL (0.40-1.00); Magnesium, Blood 2.2 mg/dL (1.6-2.4); Potassium, Blood 4.8 mmol/L (3.5-5.5)
--- NOTE | 2024-07-02 06:30 | NUR ---
SHIFT SUMMARY PT IS SOMNULENT BUT EASILY AWAKENS TO VERBAL STIMULI, ORIENTED X4, ABLE TO MAKE NEEDS KNOWN, OBEYS COMMANDS, MOVING ALL EXTREMITIES WITH PURPOSE, PT IS FORGETFUL AT TIMES, BED ALARM ACTIVE, 1 PERSON ASSIST TO BSC WITH GAIT BELT, OCCASIONALLY TWITCHES THAT APPEAR IMPROVED FROM PREVIOUS SHIFT. CONTINUOUS SPO2, SPO2 GREATER 90% ON BIPAP 14/7/40% OR 3 L O2 VIA NC, BASELINE PT USES 2L O2 VIA NC/ WHILE SLEEPING WITH NC PT SPO2 DROPPED TO 70% BUT QUICKLY RECOVERED WHEN WOKEN UP, LUNGS SOUND CLEAR T/O WITH DIM BASES. CONTINUOUS TELE MONITORING, SINUS/SINUS TACH 90-100 S, PT HAD 2 RUNS OF ASYMPTOMATIC V-TACH/ 7 BEATS/ AND 5 BEATS, BP STABLE WITH MAP GREATER THAN 65, PULSES PRESENT T/O. BOWEL TONES PRESENT IN ALL 4Q, ABD APPEARS MODERALTY DISTENDED, PT DENIES NAUSEA. PT USING BSC TO VOID, URINE YELLOW IN COLOR. PT HAVING NEGATIVE DOCUMENTED FLUID BALANCE OF 54. BED LOWEST POSITION, CALL LIGHT IN REACH, AWAITING TO GIVE REPORT TO ONCOMING RN.
[2024-07-02 07:24] VITALS: BP 116/77
--- NOTE | 2024-07-02 07:25 | NUR ---
ASSUMPTION NOTE: THIS RN TO ASSUME CARE. PATIENT IS SLEEPING,EASILY AROUSABLE. VITAL SIGNS TAKEN & PATIENT STABLE. DENYING ANY CHEST PAIN OR FEELING SHORT OF BREATH. HAS CALL LIGHT WITHIN REACH & BED IN LOWEST POSITION.
--- NOTE | 2024-07-02 10:47 | NUR ---
MD RODRIGUEZ: ROUNDED AND PATIENT IS NOW MEDICAL WITH TELE STATUS. PATIENT WAS EXCITED, CAN BE WITHOUT THE BIPAP AND ONLY WEAR IT AT NIGHT.
[2024-07-02 16:13] VITALS: BP 140/77
--- NOTE | 2024-07-02 16:36 | NUR ---
TRANSFER NOTE: PATIENT WAS TRANSFERED TO MEDCIAL FLOOR VIA WHEELCHAIR WITH TELE AND PERSONAL BELONGINGS. PATIENT FAMILY WENT ALONGSIDE & RT WAS NOTIFIED OF THE MOVE. PATIENT FAMILY BROUGHT IN HOME CPAP AND WENT WITH PATIENT. PATIENT WENT WITH OXYGEN CONNECTED AT 2 LITERS VIA NASAL CANNULA.
--- NOTE | 2024-07-02 16:47 | NUR ---
ADMIT NOTE PT A&OX4. PT ADMITTED DUE TO COPD EXAC. PT REPORTS NO SOB. PT ON TELE. PT ON 3L O2 VIA N/C. PT TRANSFERED BY WHEELCHAIR. PT ORIENTED TO CALL LIGHT AND UNIT AND FALL PRECAUTIONS. PT ENTERED TO ROOM AT 1407. PT CALL LIGHT IN REACH. CONT PULSE OX ON AND IS 91%
--- NOTE | 2024-07-02 18:45 | NUR ---
SHIFT SUMMARY PT A&OX4, SOMETIMES REPEATS HERSELF AND FORGETFUL. PT ADMITTED DUE TO COPD EXAC. PT ON TELE. PT HAS CONT PULSE OX. PT ON 3L O2 VIA N/C. PT CONT OF URINE AND USES BSC. PT IN BED, BED IN LOWEST POSITION, CALL LIGHT IN REACH. NO ACUTE CHANGES. PT EATS ADEQUATE.
[2024-07-02 20:01] VITALS: BP 149/79
[2024-07-02 20:04] VITALS: BP 149/82
[2024-07-02] MEDS ORDERED: MethylPREDNISolone Sod Succ 125 MG Vial IV SCH (21:00)
[2024-07-03 00:02] VITALS: BP 139/79
--- NOTE | 2024-07-03 04:21 | NUR ---
SHIFT SUMMARY A&0X4,USES CALL LIGHT APPROPRIATELY & VOICES NEEDS, VS HAVE BEEN STABLE, HAS REQUIRED 0XYGEN AT 2L/M WITH SATS LOW TO MID 90s,LUNG SOUNDS VERY WHEEZY BUT NO ACUTE DISTRESS NOTED,CONTINUOUS OXIMERTY CONT,TELEMETRY HAS SHOWN NSR & ST THIS SHIFT. DISCUSSED RATIONALE FOR IV SOLUMEDROL. TOLERATED THIS & ALL OTHER MEDICATIONS WELL. SBA TO BEDSIDE COMMODE. DENIES ANY ISSUES WITH BLADDER OR BOWEL FUNCTION. DROPLET/CONTACT PREC CONT. D/T MRSA OF SPUTUM. PT VOICES IS ANXIOUS TO GET OUT OF HERE BY THE 2ND SO CAN GET HOME AND PAY ALL HER BILLS BY THE 3RD APPETITE IMPROVED, GIVEN H.S. SNACKS.
[2024-07-03 05:13] VITALS: BP 106/61
[2024-07-03 05:48] LABS: BASOPHILS ABSOLUTE AUTO 0.01 K/mm3 (0.00-0.23); BASOPHILS PERCENT AUTO 0 % (0-2); EOSINOPHILS PERCENT AUTO 0 % (0-6); Hematocrit 43.8 % (33.0-51.0); Hemoglobin 14.2 g/dL (11.5-16.0); IMMATURE GRAN ABSOLUTE AUTO 0.07 K/mm3 (0.00-0.10); IMMATURE GRAN PERCENT AUTO 1 % (0-1); LYMPHOCYTES ABSOLUTE AUTO 0.57 K/mm3 (0.84-5.20); LYMPHOCYTES PERCENT AUTO 5 % (21-46); MONOCYTES ABSOLUTE AUTO 0.29 K/mm3 (0.16-1.47); MONOCYTES PERCENT AUTO 2 % (4-13); Mean Corpuscular HGB 28.4 pg (26.0-34.0); Mean Corpuscular HGB Conc 32.4 g/dL (31.5-36.5); Mean Corpuscular Volume 88 fL (80-100); Mean Platelet Volume 9.9 fL (9.1-12.4); NEUTROPHILS ABSOLUTE AUTO 10.99 K/mm3 (1.96-9.15); NEUTROPHILS PERCENT AUTO 92 % (41-73); Platelet Count 208 K/mm3 (150-400); RDW Coefficient Variation 14.6 % (11.7-14.2); RDW Standard Deviation 46.5 fL (35.1-46.3); White Blood Cell Count 11.93 K/mm3 (4.00-11.30)
[2024-07-03 06:08] LABS: Bun/Creatinine Ratio 22.8 (12.0-20.0); Calcium, Blood 8.2 mg/dL (8.5-10.1); Creatinine, Blood 0.53 mg/dL (0.40-1.00); Potassium, Blood 4.3 mmol/L (3.5-5.5)
[2024-07-03 07:18] VITALS: BP 131/84
[2024-07-03 16:38] VITALS: BP 131/74
--- NOTE | 2024-07-03 18:39 | NUR ---
SHIFT SUMMARY PT A&OX4. SOMETIMES REPEAT HERSELF AND FORGETFUL. PT ADMITTED DUE TO COPD EXACERBATION. IV GOT PULLED, PUT NO IV ORDER. PT ON TELE. PT IS SBA TO BSC. PT CONT OF URINE AND BM. TELE D/C. PT ON 2.5 L OF O2 VIA N/C. PT ON CONT PULSE MONITORING, SPO2 IS 95%. PT EATS ADEQUATE. PT IN BED. BED IN LOWEST POSITION, CALL LIGHT IN REACH. NO ACUTE CHANGES DURING SHIFT, FAM/FRIENDS AT BEDSIDE DURING SHIFT. VSS.
[2024-07-03 19:59] VITALS: BP 126/73
[2024-07-04 00:34] VITALS: BP 111/65
--- NOTE | 2024-07-04 03:55 | NUR ---
SHIFT SUMM: PT IS A 59 YO FULL CODE WHO WAS ADMITTED FOR COPD EXACERBATION AND IS IN DROPLET/CONTACT PREC FOR MRSA IN THE SPUTUM. PT HAS NO IV WITH A NO IV ORDER. PT HAS AN ORDER TO DISCONTINUE TELE WELL. PT HAS BEEN USING CPAP TONIGHT AND HAS BEEN RESTING MOST OF THE SHIFT WITH A CONT PULSE OX. PT IS A BASELINE 2L NC AND HAS BEEN 2.5L NC FOR DAYSHIFT. PT IS AN EVERYDAY SMOKER BUT REFUSED NICOTINE PATCH. PT IS A SBA TO [facility] [place] AND CALLS NEEDED. PT REPORTS FEELING MUCH BETTER AND LOOKING FORWARD TO GOING HOME SHE STATES. PT HAD A SNACK THIS EVENING AND IS IN GOOD SPIRITS. PT HAS CALL LIGHT CLOSE
[2024-07-04 06:10] LABS: BASOPHILS ABSOLUTE AUTO 0.01 K/mm3 (0.00-0.23); BASOPHILS PERCENT AUTO 0 % (0-2); EOSINOPHILS PERCENT AUTO 0 % (0-6); Hematocrit 45.6 % (33.0-51.0); Hemoglobin 14.3 g/dL (11.5-16.0); IMMATURE GRAN ABSOLUTE AUTO 0.06 K/mm3 (0.00-0.10); IMMATURE GRAN PERCENT AUTO 1 % (0-1); LYMPHOCYTES PERCENT AUTO 20 % (21-46); MONOCYTES ABSOLUTE AUTO 0.94 K/mm3 (0.16-1.47); MONOCYTES PERCENT AUTO 10 % (4-13); Mean Corpuscular HGB 28.1 pg (26.0-34.0); Mean Corpuscular HGB Conc 31.4 g/dL (31.5-36.5); Mean Corpuscular Volume 90 fL (80-100); Mean Platelet Volume 10.1 fL (9.1-12.4); NEUTROPHILS ABSOLUTE AUTO 6.84 K/mm3 (1.96-9.15); NEUTROPHILS PERCENT AUTO 70 % (41-73); Platelet Count 220 K/mm3 (150-400); RDW Coefficient Variation 14.8 % (11.7-14.2); RDW Standard Deviation 48.6 fL (35.1-46.3); Red Blood Cell Count 5.09 M/mm3 (3.80-5.20); White Blood Cell Count 9.85 K/mm3 (4.00-11.30)
[2024-07-04 06:28] LABS: Calcium, Blood 8.1 mg/dL (8.5-10.1); Creatinine, Blood 0.41 mg/dL (0.40-1.00); Potassium, Blood 4.2 mmol/L (3.5-5.5)
[2024-07-04 07:18] VITALS: BP 135/83
[2024-07-04] MEDS ORDERED: PredniSONE 20 MG Tab PO SCH (09:00)
[2024-07-04] MEDS ORDERED: ALBU2.5V5 INH (11:49)
[2024-07-04] MEDS ORDERED: IPRAT-ALBUT 0.5-3 ML INH (11:52)
[2024-07-04] MEDS ORDERED: NICO2 PO (11:53)
[2024-07-04] MEDS ORDERED: PRED20 PO (11:53)
--- NOTE | 2024-07-04 12:00 | NUR ---
DISCHARGE MEDCIATIONS CLARIFIED WITH PT WHERE SHE WANTED HER DISCHARGE MEDICATIONS FAXED TO [facility] BE[facility] CLOSED THIS WEEKEND. REFUSED TO HAVE THEM FAXED ANYWHERE ELSE. CLARIFIED THAT SHE WAS NEEDING PREDNISONE. SHE STATED," I KNOW. I WILL PICK IT UP ON SATURDAY." CARE ONGOING.
--- NOTE | 2024-07-04 14:25 | NUR ---
DISCHARGE SUMMARY PT DISCHARGED HOME AT APPROX 1425. DISCHARGE PACKET REVIEWED WITH PT. THIS RN AND ANOTHER RN EDUCATED PT ON IMPORTANCE OF PICKING UP PREDNISONE TODAY TO CONTINUE ORDERED AND PT REFUSED AND INSISTED ON RX BEING FAXED TO [facility] THAT IS CLOSED DURING WEEKEND. PT VERBALIZED THE RISKS AND WANTS TO CONTINUE WITH HER DECISION DESPIITE EDUCATION PROVIDED. NO IV TO REMOVE. HOME O2 EVALUATION COMPLETED AND REVIEWED WITH PT, PT HAS O2 AT HOME. PT WHEELED DOWN TO PRIVATE VEHICLE BY VIANNEY.
== END 2024-07-04 14:22 | disposition home or self-care (01) | DRG 189 ==
LOC: ER 15:20 → PCU 21:07 → MEDS 07-02 16:11
PROVIDERS: Family Medicine; Nurse Practitioner Acute Care; Physician Assistant; Student in an Organized Health Care Education/Training Program; ADMIT Internal Medicine
PROC: 5A09357 Assistance with Respiratory Ventilation, Less than 24 Consecutive Hours, Continuous Positive Airway Pressure (ICD-10-PCS; principal; 2024-06-30)
DX: J96.21 Acute and chronic respiratory failure with hypoxia (principal); J44.1 Chronic obstructive pulmonary disease with (acute) exacerbation; I24.89 Other forms of acute ischemic heart disease; E87.20 Acidosis, unspecified; J96.22 Acute and chronic respiratory failure with hypercapnia; K21.9 Gastro-esophageal reflux disease without esophagitis; E78.5 Hyperlipidemia, unspecified; Z66 Do not resuscitate; I10 Essential (primary) hypertension; G40.909 Epilepsy, unspecified, not intractable, without status epilepticus; F17.210 Nicotine dependence, cigarettes, uncomplicated; E87.70 Fluid overload, unspecified; G47.33 Obstructive sleep apnea (adult) (pediatric); I25.10 Atherosclerotic heart disease of native coronary artery without angina pectoris; Z88.0 Allergy status to penicillin; Z88.1 Allergy status to other antibiotic agents; Z88.8 Allergy status to other drugs, medicaments and biological substances; Z79.52 Long term (current) use of systemic steroids; Z79.51 Long term (current) use of inhaled steroids; I25.2 Old myocardial infarction; Z95.1 Presence of aortocoronary bypass graft; Z71.6 Tobacco abuse counseling
CPT/HCPCS: 36415; 71046; 80048; 80053; 82803; 83735; 83880; 84484; 85025; 85027; 93005; 93010; 93306; 94640; 94644; 94660; 94664; 94761; 94762; 99285-25; A9270; J0456; J1650; J2919; J7030; J7050; J7512

== ENCOUNTER 2024-12-31 18:05 | Inpatient (IN) | payer MEDICARE, OTHER ==
[~2024-12-31] VITALS: Ht 157.5 cm; Wt 66.5 kg
[~2024-12-31 18:05] MED LIST changes: +ACET325 PO; +ALBU2.5V5 INH; -BUSPIRONE HCL30 M1 PO; +Deltasone 10 mg10 MG PO; +ERGO50000 PO; +Enoxaparin 40 MG/0.4 ML SYR SC SCH; +FERSU300 PO; +GUAI600T33 PO; +IPRAT-ALBUT 0.5-3 ML INH; +IRON18 M1 PO; +NICO2 PO; +TRELEGY ELLIPT1 EACH INH
[2024-12-31 18:37] LABS: pH Blood Venous 7.34 (7.34-7.37)
[2024-12-31 18:41] LABS: BASOPHILS ABSOLUTE AUTO 0.02 K/mm3 (0.00-0.23); BASOPHILS PERCENT AUTO 0 % (0-2); EOSINOPHILS ABSOLUTE AUTO 0.00 K/mm3 (0.00-0.68); EOSINOPHILS PERCENT AUTO 0 % (0-6); Hematocrit 42.7 % (33.0-51.0); Hemoglobin 13.7 g/dL (11.5-16.0); IMMATURE GRAN ABSOLUTE AUTO 0.01 K/mm3 (0.00-0.10); IMMATURE GRAN PERCENT AUTO 0 % (0-1); LYMPHOCYTES ABSOLUTE AUTO 1.57 K/mm3 (0.84-5.20); LYMPHOCYTES PERCENT AUTO 29 % (21-46); MONOCYTES ABSOLUTE AUTO 0.67 K/mm3 (0.16-1.47); MONOCYTES PERCENT AUTO 13 % (4-13); Mean Corpuscular HGB Conc 32.1 g/dL (31.5-36.5); Mean Corpuscular Volume 92 fL (80-100); NEUTROPHILS ABSOLUTE AUTO 3.11 K/mm3 (1.96-9.15); NEUTROPHILS PERCENT AUTO 58 % (41-73); NRBC ABSOLUTE 0.00 K/mm3 (0.00-0.02); NRBC Auto 0.0 /100 WBC (0.0-0.2); Platelet Count 195 K/mm3 (150-400); RDW Coefficient Variation 16.3 % (11.7-14.2); RDW Standard Deviation 54.9 fL (35.1-46.3)
[2024-12-31 19:11] LABS: Alanine Aminotransfer (ALT/SGP 14.0 U/L (12-78); Albumin, Blood 3.1 g/dL (3.4-5.0); Albumin/Globulin Ratio 0.9 (0.8-1.8); Anion Gap 3.0 mmol/L (3-11); Aspartate Aminotrans (AST/SGOT 10.0 U/L (12-37); Bilirubin, Total 0.5 mg/dL (0.1-1.0); Blood Urea Nitrogen 11.0 mg/dL (8-24); CO2, Blood 43.0 mmol/L (21-32); Calcium, Blood 8.6 mg/dL (8.5-10.1); Chloride, Blood 97.0 mmol/L (98-108); Creatinine, Blood 0.45 mg/dL (0.40-1.00); Globulin, Blood 3.3 g/dL (2.2-4.0); Glucose, Blood 94.0 mg/dL (70-99); Potassium, Blood 3.7 mmol/L (3.5-5.5); Sodium, Blood 139.0 mmol/L (136-145); Total Protein, Blood 6.4 g/dL (6.4-8.2)
[2024-12-31] MEDS ORDERED: Albuterol 2.5 MG/3 ML VIAL INH SCH (19:45)
[2024-12-31 20:03] LABS: Influenza A, PCR NEGATIVE (NEGATIVE); Influenza B, PCR NEGATIVE (NEGATIVE); Resp Syncytial Virus, PCR NEGATIVE (NEGATIVE); SARS-Cov-2 (COVID-19) PCR, MMC NEGATIVE (NEGATIVE)
[2024-12-31 23:04] LABS: pH Blood Arterial 6.99 (7.35-7.45)
[2024-12-31] MEDS ORDERED: Ipratropium/Albuterol SulF 2.5-0.5MG/3 ML Amp INH PRN (23:10)
[2024-12-31] MEDS ORDERED: FLU VACC TS2025-26(6MOS UP)/PF 45 MCG/0.5 ML SYRINGE IM SCH (23:10)
[2024-12-31] MEDS ORDERED: Ondansetron HCl 2 MG / ML 2ML Vial IV PRN (23:15)
[2024-12-31] MEDS ORDERED: LevoFLOXacin 750 MG/D5W 150ML 150 ML IV SCH (23:27)
[2025-01-01] VITALS (74 sets, daily range): BP systolic 95–163; BP diastolic 65–122
[2025-01-01 00:12] LABS: pH Blood Venous 7.14 (7.34-7.37)
--- NOTE | 2025-01-01 00:36 | NUR ---
ER ADMIT/TRANSFER TO ICU RECEIVED REPORTS FROM ABNER MALIK IN ED, PER REPORT PT WAKING UP WHILE ON BIPAP. PT TO ROOM AT 2350, PT ON BIPAP 22/8 30% FIO2 WITH NASAL TRUMPET IN PLACE TO TIGHT NARES, RESP RATE 20-24, SPO2 80-88%, SHALLOW CHEST RISE NOTED, TITRATED FIO2 UP TO 50%, NOTIFIED RT, FOREST AT BEDSIDE. PT OPENING EYE TO VERBAL STIMULI, BUT QUICKLY FALLING BACK TO SLEEP, WHEN REPOSITIONING TREMORS/JERKING NOTED. SCATTERED RASH TO BLE. OTHER VSS. DR SIFUENTES AT BEDSIDE, VBG DRAWN AND RESULTED, PLANS TO TRANSFER TO ICU, REPORT GIVEN TO AMBAR LEVINE, AT BEDSIDE AT APPROX 0019.
--- NOTE | 2025-01-01 02:07 | NUR ---
ARRIVAL: PT ARRIVED TO ICU 12 FROM PCU AT 0017 01/01/25. PT WAS TRANSPORTED VIA HOSPITAL BED. PT IS ALERT TO VERBAL STIMULI, ABLE TO ANSWER SIMPLE YES OR NO QUESTIONS AND FOLLOW COMMANDS. PT IS ON BIPAP: 22/8 50%. SPO2 >95%. LUNG SOUNDS, RUBS AND DIMISHED IN BASES. PT IS SHALLOW BREATHING. SINUS RYTHM WITH SBP: 100'S MAP >65 HR: 90-100'S. IV: PERIPHERAL IN R HAND AND LAC. LINES AND CORDS PLACED OUT OF REACH. CALL LIGHT PLACED WITHIN REACH. SEE PT CHART FOR FULL ASSESSMENT.
[2025-01-01 03:20] LABS: pH Blood Venous 7.43 (7.34-7.37)
[2025-01-01 03:32] LABS: BASOPHILS ABSOLUTE AUTO 0.01 K/mm3 (0.00-0.23); BASOPHILS PERCENT AUTO 0 % (0-2); EOSINOPHILS ABSOLUTE AUTO 0.00 K/mm3 (0.00-0.68); EOSINOPHILS PERCENT AUTO 0 % (0-6); Hematocrit 45.0 % (33.0-51.0); Hemoglobin 14.4 g/dL (11.5-16.0); IMMATURE GRAN ABSOLUTE AUTO 0.02 K/mm3 (0.00-0.10); IMMATURE GRAN PERCENT AUTO 0 % (0-1); LYMPHOCYTES ABSOLUTE AUTO 0.31 K/mm3 (0.84-5.20); LYMPHOCYTES PERCENT AUTO 5 % (21-46); MONOCYTES ABSOLUTE AUTO 0.18 K/mm3 (0.16-1.47); MONOCYTES PERCENT AUTO 3 % (4-13); Mean Corpuscular HGB Conc 32.0 g/dL (31.5-36.5); Mean Corpuscular Volume 93 fL (80-100); NEUTROPHILS ABSOLUTE AUTO 5.31 K/mm3 (1.96-9.15); NEUTROPHILS PERCENT AUTO 91 % (41-73); NRBC ABSOLUTE 0.00 K/mm3 (0.00-0.02); NRBC Auto 0.0 /100 WBC (0.0-0.2); Platelet Count 184 K/mm3 (150-400); RDW Coefficient Variation 16.0 % (11.7-14.2); RDW Standard Deviation 54.4 fL (35.1-46.3)
[2025-01-01 03:58] LABS: Alanine Aminotransfer (ALT/SGP 18.0 U/L (12-78); Albumin, Blood 3.3 g/dL (3.4-5.0); Albumin/Globulin Ratio 0.9 (0.8-1.8); Anion Gap 4.0 mmol/L (3-11); Aspartate Aminotrans (AST/SGOT 9.0 U/L (12-37); Bilirubin, Total 0.6 mg/dL (0.1-1.0); Blood Urea Nitrogen 19.0 mg/dL (8-24); CO2, Blood 41.0 mmol/L (21-32); Calcium, Blood 9.2 mg/dL (8.5-10.1); Chloride, Blood 95.0 mmol/L (98-108); Creatinine, Blood 0.59 mg/dL (0.40-1.00); Globulin, Blood 3.7 g/dL (2.2-4.0); Glucose, Blood 193.0 mg/dL (70-99); Potassium, Blood 4.2 mmol/L (3.5-5.5); Sodium, Blood 136.0 mmol/L (136-145); Total Protein, Blood 7.0 g/dL (6.4-8.2)
--- NOTE | 2025-01-01 06:03 | NUR ---
SHIFT SUMMARY: PT IS DOING WELL AND RESTING IN BED. PT IS ALERT AND ABLE TO FOLLOW COMMANDS AND EAGER TO HAVE BIPAP REMOVED. PT REMAINS ON BIPAP WITH SPO2 >95%. VITAL SINGS HAVE BEEN STABLE. IV: PERIPHERAL LAC AND R HAND. PUREWICK IS IN PLACE AND CONNECTED TO CONTINUOUS SUCTION. LINES, CORDS, AND TUBES PLACED OUT OF REACH. CALL LIGHT PLACED WITHIN REACH.
--- NOTE | 2025-01-01 07:32 | NUR ---
ASSUMED CARE OF PATIENT AT APPROXIMATELY 0700. REPORT RECEIVED FROM ABNER UP. PT ASLEEP AT TIME OF BEDSIDE REPORT. CONTINUOUS CARDIAC MONITORING IN PLACE. BP STABLE. ON BIPAP c SETTINGS OF 24/8 AND 35%, O2 SATURATION > 92%. PIV's SALINE LOCKED. SEE SHIFT ASSESSMENT FOR FULL DETAILS.
[2025-01-01 11:56] LABS: pH Blood Venous 7.57 (7.34-7.37)
[2025-01-01] MEDS ORDERED: GABA300 PO (14:10)
[2025-01-01] MEDS ORDERED: Albuterol HFA200 ACT/6.7 GM INH INH PRN (14:45)
[2025-01-01 15:02] LABS: U Amphetamine Screen Not Detected; U Barbituate Screen Not Detected; U Benzodiazapine Screen Not Detected; U Buprenorphine Screen Not Detected; U Cannabinoids Screen Not Detected; U Cocaine Screen Not Detected; U Methadone Screen Not Detected; U Methamphetamine Screen Not Detected; U Opiates Screen DETECTED; U Oxycodone Screen Not Detected; U Phencyclidine Screen Not Detected
[2025-01-01 16:17] LABS: pH Blood Venous 7.51 (7.34-7.37)
[2025-01-01] MEDS ORDERED: Mag Sulfate 1 GM/D5% 100ML 100 ML IV ONE (17:05)
--- NOTE | 2025-01-01 17:08 | NUR ---
SHIFT SUMMARY PT REMAINED ALERT AND ORIENTED X 4 T/O ENTIRETY OF SHIFT. ABLE TO FOLLOW COMMANDS, MAKE PURPOSEFUL MOVEMENTS, AND MAKE NEEDS KNOWN. AFEBRILE AND DENIES PAIN. CONTINUOUS CARDIAC MONITORING IN PLACE SHOWS SR-ST PREDOMINANTLY WITH ONE EPISODE OF VTACH (SEE NOTE). DENIES CP/PRESSURE. BP STABLE. ON 2LPM O2 VIA NC c O2 SATURATION > 92%. PT HAS HOME CPAP AT BEDSIDE WITH BIPAP REMAINING IN ROOM IF NEEDED. UTILIZES BSC WITH ONE PERSON SBA. NO BM THIS SHIFT. CLEAR LIQUID DIET WITH ORDERS TO ADVANCE TOLERATED. PIV TO LAC INFUSING MAG. FAMILY AT BEDSIDE T/O SHIFT, UPDATED ON POC. WILL CONTINUE TO MONITOR AND REPORT TO ONCOMING RN.
[2025-01-01] MEDS ORDERED: Divalproex Sodium 500 MG TABCR PO SCH (21:00)
--- NOTE | 2025-01-01 21:07 | NUR ---
ASSUMPTION OF CARE: ASSUMED CARE AT START OF SHIFT (1899). REPORT RECEIVED FROM DAY SHIFT RN. PT IS DOING WELL AND RESTING IN BED. PT IS ALERT AND FOLLOWING COMMANDS. PT DENIES ANY PAIN, CP, OR SOB AT THIS TIME. LUNG SOUNDS ARE COARSE AND DIMINSIHED IN THE BASES. ON O2 @ 2LPM VIA NC, SPO2 >95%. SINUS RYTHM WITH SBP: 140-150'S MAP >65 HR: 90'S. IV: PERIPHERAL IN LAC AND R FOREARM. PT IS ABLE TO STAND AND USE BEDSIDE COMMODE VIA 1-PERSON ASSIST. LINES AND CORDS PLACED OUT OF REACH. CALL LIGHT PLACED WITHIN REACH. WILL CONTINUE TO MONITOR.
[2025-01-02] VITALS (44 sets, daily range): BP systolic 124–164; BP diastolic 74–106
[2025-01-02 04:02] LABS: pH Blood Venous 7.55 (7.34-7.37)
[2025-01-02 04:12] LABS: BASOPHILS ABSOLUTE AUTO 0.03 K/mm3 (0.00-0.23); BASOPHILS PERCENT AUTO 0 % (0-2); EOSINOPHILS ABSOLUTE AUTO 0.00 K/mm3 (0.00-0.68); EOSINOPHILS PERCENT AUTO 0 % (0-6); Hematocrit 38.0 % (33.0-51.0); Hemoglobin 13.0 g/dL (11.5-16.0); IMMATURE GRAN ABSOLUTE AUTO 0.04 K/mm3 (0.00-0.10); IMMATURE GRAN PERCENT AUTO 0 % (0-1); LYMPHOCYTES ABSOLUTE AUTO 0.60 K/mm3 (0.84-5.20); LYMPHOCYTES PERCENT AUTO 4 % (21-46); MONOCYTES ABSOLUTE AUTO 0.40 K/mm3 (0.16-1.47); MONOCYTES PERCENT AUTO 3 % (4-13); Mean Corpuscular HGB Conc 34.2 g/dL (31.5-36.5); Mean Corpuscular Volume 88 fL (80-100); NEUTROPHILS ABSOLUTE AUTO 12.75 K/mm3 (1.96-9.15); NEUTROPHILS PERCENT AUTO 92 % (41-73); NRBC ABSOLUTE 0.00 K/mm3 (0.00-0.02); NRBC Auto 0.0 /100 WBC (0.0-0.2); Platelet Count 180 K/mm3 (150-400); RDW Coefficient Variation 16.3 % (11.7-14.2); RDW Standard Deviation 52.5 fL (35.1-46.3)
[2025-01-02 05:10] LABS: Alanine Aminotransfer (ALT/SGP 13.0 U/L (12-78); Albumin, Blood 3.0 g/dL (3.4-5.0); Albumin/Globulin Ratio 1.0 (0.8-1.8); Anion Gap 8.0 mmol/L (3-11); Aspartate Aminotrans (AST/SGOT 9.0 U/L (12-37); Bilirubin, Total 0.3 mg/dL (0.1-1.0); Blood Urea Nitrogen 18.0 mg/dL (8-24); CO2, Blood 35.0 mmol/L (21-32); Calcium, Blood 9.1 mg/dL (8.5-10.1); Chloride, Blood 94.0 mmol/L (98-108); Creatinine, Blood 0.58 mg/dL (0.40-1.00); Globulin, Blood 3.1 g/dL (2.2-4.0); Glucose, Blood 137.0 mg/dL (70-99); Magnesium, Blood 1.9 mg/dL (1.6-2.4); Potassium, Blood 3.7 mmol/L (3.5-5.5); Sodium, Blood 133.0 mmol/L (136-145); Total Protein, Blood 6.1 g/dL (6.4-8.2)
--- NOTE | 2025-01-02 05:56 | NUR ---
SHIFT SUMMARY: PT IS DOING WELL AND RESTING IN BED. NO ACUTE CHANGES THROUGHOUT THE SHIFT. VITAL SIGNS REMAIN STABLE. PT USED THEIR OWN BIPAP MACHINE WHILE SLEEPING. PT ABLE TO USE BEDISDE COMMODE VIA 1-PERSON ASSIST. LINE AND CORDS PLACED OUT OF REACH. CALL LIGHT PLACED WITHIN REACH.
--- NOTE | 2025-01-02 07:00 | NUR ---
ASSUMPTION OF CARE PT REQUESTING TO USE RESTROOM AND BE SWITCHED TO NC. PT PLACED ON 2L NC. SHE IS ALERT AND ORIENTED. SINUS ON MONITOR WITH RATE 90S-100S. MAP >65. DENIES PAIN. DENIES SOB. BED IN LOW POSITION, CALL LIGHT WITHIN REACH.
[2025-01-02] MEDS ORDERED: Cholecalciferol 1000 Unit Tablet (=25MCG) PO SCH (09:00)
[2025-01-02] MEDS ORDERED: Misc. Inhaler INH SCH (09:00)
[2025-01-02] MEDS ORDERED: BREZTRI AEROSPHERE INH SCH (14:18)
--- NOTE | 2025-01-02 16:08 | NUR ---
PATIENT ARRIVED TO MEDICAL FLOOR AT 1525. A/O X4, PLEASANT MOOD, WELL GROOMED. ON 3 LITERS NC SATING 97% WITH MINIMAL DESAT FOR ACTIVITY. LUNGS WHEEZY AND CONGESTED SOUNDING. SKIN INTACT. ABLE TO TRANSFER SBA TO BED.
--- NOTE | 2025-01-03 03:27 | NUR ---
SHIFT SUMMARY: PT IS AOX4. VSS. PT IS CURRENTLY ON 2L O2, BASELINE, AND HOME CPAP. PT CALLS APPROPRIATELY TO BE ASSISTED TO RESTROOM. SEIZURE PADS PLACED. CALL LIGHT IS WITHIN REACH. BED IS LOW AND LOCKED.
[2025-01-03 03:34] VITALS: BP 122/78
[2025-01-03 07:11] VITALS: BP 124/78
[2025-01-03 12:45] VITALS: BP 121/66
[2025-01-03] MEDS ORDERED: Prednisone10 MG PO (14:26)
--- NOTE | 2025-01-03 15:19 | NUR ---
DISCHARGE SUMMARY PATIENT DISCHARGED HOME ON 2 LITERS NC, WHICH IS BASELINE. SON AND DAUGHTER IN TO PICK HER UP. ADVISED HER TO CHANGE ALL OF HER OXYGEN TUBING TO HELP PREVENT FUTURE INFECTIONS. DISCHARGE PACKET GIVEN AND REVIEWED, QUESTIONS ANSWERED, VERBALIZED UNDERSTANDING. IV'S REMOVED WITHOUT COMPLICATION.
== END 2025-01-03 14:45 | disposition home or self-care (01) | DRG 193 ==
LOC: ER 18:05 → PCU 22:19 → ICUE 22:19 → MEDS 23:35 → PCU 23:46 → ICUE 01-01 00:30 → MEDS 01-02 15:25
PROVIDERS: Internal Medicine Endocrinology, Diabetes & Metabolism; Physician Assistant; ADMIT Internal Medicine
PROC: 3E03329 Introduction of Other Anti-infective into Peripheral Vein, Percutaneous Approach (ICD-10-PCS; principal; 2024-12-31)
PROC: 5A09357 Assistance with Respiratory Ventilation, Less than 24 Consecutive Hours, Continuous Positive Airway Pressure (ICD-10-PCS; 2024-12-31)
DX: J18.9 Pneumonia, unspecified organism (principal); G93.41 Metabolic encephalopathy; J96.21 Acute and chronic respiratory failure with hypoxia; J96.22 Acute and chronic respiratory failure with hypercapnia; J44.0 Chronic obstructive pulmonary disease with (acute) lower respiratory infection; J44.1 Chronic obstructive pulmonary disease with (acute) exacerbation; E87.3 Alkalosis; G47.33 Obstructive sleep apnea (adult) (pediatric); G40.909 Epilepsy, unspecified, not intractable, without status epilepticus; F17.210 Nicotine dependence, cigarettes, uncomplicated; E83.42 Hypomagnesemia; I25.10 Atherosclerotic heart disease of native coronary artery without angina pectoris; I10 Essential (primary) hypertension; Z88.0 Allergy status to penicillin; Z88.1 Allergy status to other antibiotic agents; Z88.6 Allergy status to analgesic agent; Z88.8 Allergy status to other drugs, medicaments and biological substances; J45.909 Unspecified asthma, uncomplicated; Z98.890 Other specified postprocedural states; Z79.899 Other long term (current) drug therapy; Z98.51 Tubal ligation status
CPT/HCPCS: 36415; 36600; 71045; 80053; 82803; 83735; 83880; 85025; 87637; 93005; 93010; 94640; 94645; 94660; 94664; 94762; 96374; 97161; 97530; 99285-25; A9270; J1650; J1956; J2919; J3475; J7512

== ENCOUNTER 2025-03-06 19:06 | Observation (INO) | payer MEDICARE, OTHER ==
[~2025-03-06] VITALS: Ht 157.5 cm; Wt 68.6 kg
[~2025-03-06 19:06] MED LIST changes: -Enoxaparin 40 MG/0.4 ML SYR SC SCH; +Prednisone10 MG PO
[2025-03-06 19:39] LABS: BASOPHILS ABSOLUTE AUTO 0.02 K/mm3 (0.00-0.23); BASOPHILS PERCENT AUTO 0 % (0-2); EOSINOPHILS ABSOLUTE AUTO 0.18 K/mm3 (0.00-0.68); EOSINOPHILS PERCENT AUTO 3 % (0-6); Hematocrit 45.2 % (33.0-51.0); Hemoglobin 14.5 g/dL (11.5-16.0); IMMATURE GRAN ABSOLUTE AUTO 0.01 K/mm3 (0.00-0.10); IMMATURE GRAN PERCENT AUTO 0 % (0-1); LYMPHOCYTES ABSOLUTE AUTO 1.93 K/mm3 (0.84-5.20); LYMPHOCYTES PERCENT AUTO 31 % (21-46); MONOCYTES ABSOLUTE AUTO 0.76 K/mm3 (0.16-1.47); MONOCYTES PERCENT AUTO 12 % (4-13); Mean Corpuscular HGB Conc 32.1 g/dL (31.5-36.5); Mean Corpuscular Volume 95 fL (80-100); NEUTROPHILS ABSOLUTE AUTO 3.40 K/mm3 (1.96-9.15); NEUTROPHILS PERCENT AUTO 54 % (41-73); NRBC ABSOLUTE 0.00 K/mm3 (0.00-0.02); NRBC Auto 0.0 /100 WBC (0.0-0.2); Platelet Count 263 K/mm3 (150-400); RDW Coefficient Variation 11.3 % (11.7-14.2); RDW Standard Deviation 39.3 fL (35.1-46.3)
[2025-03-06 19:44] LABS: pH Blood Venous 7.40 (7.34-7.37)
[2025-03-06 19:54] LABS: Anion Gap 3.0 mmol/L (3-11); Blood Urea Nitrogen 8.0 mg/dL (8-24); CO2, Blood 40.0 mmol/L (21-32); Calcium, Blood 9.6 mg/dL (8.5-10.1); Chloride, Blood 99.0 mmol/L (98-108); Creatinine, Blood 0.49 mg/dL (0.40-1.00); Glucose, Blood 106.0 mg/dL (70-99); Potassium, Blood 3.9 mmol/L (3.5-5.5); Sodium, Blood 138.0 mmol/L (136-145)
[2025-03-06 20:29] LABS: Influenza A, PCR NEGATIVE (NEGATIVE); Influenza B, PCR NEGATIVE (NEGATIVE); Resp Syncytial Virus, PCR NEGATIVE (NEGATIVE); SARS-Cov-2 (COVID-19) PCR, MMC NEGATIVE (NEGATIVE)
[2025-03-06] MEDS ORDERED: Ipratropium/Albuterol SulF 2.5-0.5MG/3 ML Amp INH ONE (20:30)
[2025-03-06] MEDS ORDERED: Ipratropium/Albuterol SulF 2.5-0.5MG/3 ML Amp INH SCH (23:40)
[2025-03-06] MEDS ORDERED: FLU VACC TS2025-26(6MOS UP)/PF 45 MCG/0.5 ML SYRINGE IM SCH (23:40)
[2025-03-06 23:51] LABS: pH Blood Venous 7.31 (7.34-7.37)
[2025-03-07] MEDS ORDERED: Formoterol/Mometasone MDI 5/100 mcg 13 GM INH SCH (00:45)
[2025-03-07] MEDS ORDERED: Albuterol 2.5 MG/3 ML VIAL INH PRN (00:50)
--- NOTE | 2025-03-07 00:55 | NUR ---
REPORT FROM ABNER PAULINO AT 0051. WILL PASS REPORT ON TO PRIMARY RN UPON HER RETURN.
[2025-03-07 01:14] VITALS: BP 127/86
[2025-03-07] MEDS ORDERED: ZOCOR20 MG PO (01:44)
[2025-03-07] MEDS ORDERED: BREYNA 160-4.10.3 GM INH (01:46)
[2025-03-07 03:09] LABS: BASOPHILS ABSOLUTE AUTO 0.01 K/mm3 (0.00-0.23); BASOPHILS PERCENT AUTO 0 % (0-2); EOSINOPHILS ABSOLUTE AUTO 0.00 K/mm3 (0.00-0.68); EOSINOPHILS PERCENT AUTO 0 % (0-6); Hematocrit 44.2 % (33.0-51.0); Hemoglobin 14.2 g/dL (11.5-16.0); IMMATURE GRAN ABSOLUTE AUTO 0.02 K/mm3 (0.00-0.10); IMMATURE GRAN PERCENT AUTO 0 % (0-1); LYMPHOCYTES ABSOLUTE AUTO 0.55 K/mm3 (0.84-5.20); LYMPHOCYTES PERCENT AUTO 7 % (21-46); MONOCYTES ABSOLUTE AUTO 0.06 K/mm3 (0.16-1.47); MONOCYTES PERCENT AUTO 1 % (4-13); Mean Corpuscular HGB Conc 32.1 g/dL (31.5-36.5); Mean Corpuscular Volume 94 fL (80-100); NEUTROPHILS ABSOLUTE AUTO 7.16 K/mm3 (1.96-9.15); NEUTROPHILS PERCENT AUTO 92 % (41-73); NRBC ABSOLUTE 0.00 K/mm3 (0.00-0.02); NRBC Auto 0.0 /100 WBC (0.0-0.2); Platelet Count 259 K/mm3 (150-400); RDW Coefficient Variation 11.3 % (11.7-14.2); RDW Standard Deviation 39.2 fL (35.1-46.3)
[2025-03-07 03:28] LABS: Alanine Aminotransfer (ALT/SGP 16.0 U/L (12-78); Albumin, Blood 3.0 g/dL (3.4-5.0); Albumin/Globulin Ratio 0.7 (0.8-1.8); Anion Gap 8.0 mmol/L (3-11); Aspartate Aminotrans (AST/SGOT 9.0 U/L (12-37); Bilirubin, Total 0.4 mg/dL (0.1-1.0); Blood Urea Nitrogen 17.0 mg/dL (8-24); CO2, Blood 35.0 mmol/L (21-32); Calcium, Blood 9.5 mg/dL (8.5-10.1); Chloride, Blood 98.0 mmol/L (98-108); Creatinine, Blood 0.45 mg/dL (0.40-1.00); Globulin, Blood 4.4 g/dL (2.2-4.0); Glucose, Blood 165.0 mg/dL (70-99); Magnesium, Blood 2.0 mg/dL (1.6-2.4); Potassium, Blood 4.2 mmol/L (3.5-5.5); Sodium, Blood 137.0 mmol/L (136-145); Total Protein, Blood 7.4 g/dL (6.4-8.2)
--- NOTE | 2025-03-07 04:20 | NUR ---
PATIENT ADMITTED DURING SHIFT FOR METABOLIC ENCEPHALOPATHY. PATIENT ALERT AND ORIENTED X4, ABLE TO MAKE NEEDS KNOWN BUT SLOW TO RESPOND. PATIENT ON 3 L NC-BASELINE. CONTINUOUS PULSE OX IN PLACE. PATIENT ON CPAP AT NIGHT. PATIENT IS NPO. MED REC COMPLETE. BRIEF IN PLACE. BED IS IN LOW POSITION WITH WHEELS LOCKED. BED ALARM ON AND CALL LIGHT WITHIN REACH.
[2025-03-07 04:24] VITALS: BP 124/74
[2025-03-07 04:50] LABS: pH Blood Venous 7.42 (7.34-7.37)
[2025-03-07 07:49] VITALS: BP 134/81
[2025-03-07] MEDS ORDERED: Divalproex Sodium 500 MG TABCR PO SCH (09:00)
[2025-03-07] MEDS ORDERED: Enoxaparin 40 MG/0.4 ML SYR SC SCH (09:00)
[2025-03-07 16:39] VITALS: BP 121/67
--- NOTE | 2025-03-07 17:34 | NUR ---
SHIFT SUMMARY PT IS A/OX4, FORGETFUL AND SLOW TO RESPOND AT TIMES. NO ACUTE CHANGES THROUGHOUT THIS SHIFT. ON 3L NC, PT REPORTS THIS IS AT BASELINE, SATS >90% ON CONT PULSE OX. 1 PERSON ASSIST TO BSC. PT IS COOPERATIVE WITH CARE AND CALLS APPROPRIATELY USING THE CALL LIGHT.
[2025-03-07 19:36] VITALS: BP 119/65
[2025-03-08 03:48] VITALS: BP 125/75
--- NOTE | 2025-03-08 03:51 | NUR ---
LEGAL PRACTICE MANAGER SUMMARY VSS. A/O X 4. COOPERATIVE WITH CARE. 02 3L/MIN PER NC. HOB ELEVATED FOR RESP COMFORT. UP TO BEDSIDE COMMODE WITH ASSIST TO VOID. ACCU CHECKS Q 6HR. HAS BEEN RESTING QUIETLY INTERMITTENTLY WITH FEW C/O VOICED. CALL LIGHT IN REACH, RAILS UP X 2 AND BED IN LOW POSITION FOR SAFETY. WILL CONT TO MONITOR
[2025-03-08 05:57] LABS: Anion Gap 6.0 mmol/L (3-11); Blood Urea Nitrogen 18.0 mg/dL (8-24); CO2, Blood 37.0 mmol/L (21-32); Calcium, Blood 9.0 mg/dL (8.5-10.1); Chloride, Blood 97.0 mmol/L (98-108); Creatinine, Blood 0.4 mg/dL (0.40-1.00); Glucose, Blood 123.0 mg/dL (70-99); Potassium, Blood 3.9 mmol/L (3.5-5.5); Sodium, Blood 136.0 mmol/L (136-145)
[2025-03-08 07:31] VITALS: BP 120/75
[2025-03-08] MEDS ORDERED: Ventolin5 MG/1 ML INH (12:53)
--- NOTE | 2025-03-08 13:27 | NUR ---
COMPLETED MINI WALK TEST WITH PT ON BASELINE 3L NC IN ROOM WITH WALKER. PT INITIALLY AT 97-98% AND MAINTAINED SATS ABOVE 91% LOWEST SHE GOT WAS 92%. LUNGS ON AUSCULTATION SOUND MORE CLEAR COMPARED TO THIS MORNING'S RHONCHI. AFTER AMBULATION JUST SOUNDED MILDLY TIGHT. PT SLIGHTLY SHORT OF BREATH. PT ALSO REPORTS COUGHING CLEARING UP PHLEGM PRIOR TO ABULATING. PT AMBULATED A DISTANCE OF APPROXIMATELY 15 FEET.
[2025-03-08 15:25] VITALS: BP 132/77
[2025-03-08] MEDS ORDERED: PRED20 PO (16:12)
[2025-03-08] MEDS ORDERED: DOXY100 PO (16:13)
--- NOTE | 2025-03-08 17:31 | NUR ---
DISCHARGE SUMMARY PT EDUCATED ON PATIENT EDUCATION, DISCHARGE INSTRUCTION AND FOLLOW UP APPT ON 03/09. IV REMOVED. PT SISTER BROUGHT IN PORTABLE O2 TANK FROM HOME FOR DISCHARGE TX. PT GOT DRESSED WITH MINIMAL ASSISTANCE. HOME MEDS WERE PICKED UP FROM PHARMACY AND RETURNED TO PATIENT. NO BELONGINGS LOCKED IN SECURITY. ALL PT BELONGINGS GATHERED: GLASSES, TOP DENTRURES. PT DENIES USING CONTACTS ALTHOUGH THOSE WERE MARKED ON ADMIT. PT HOME WALKER AND BIPAP ARE ALREADY AT HOME AND NOT AT BEDSIDE. NO QUESTIONS OR CONCERNS PRIOR TO DC. PRESCRIPTIONS FAXED TO [facility] PER PT REQUEST. ESCORTED DOWNSTAIRS VIA WHEELCHAIR BY ZIPPER SEWING MACHINE OPERATOR AND PT'S SISTER.
== END 2025-03-08 17:30 | disposition home or self-care (01) ==
LOC: ER 19:06 → MEDS 19:07 → ENPENDDIS 03-08 15:40 → MEDS 03-08 17:30
PROVIDERS: Emergency Medicine; Family Medicine; ADMIT Student in an Organized Health Care Education/Training Program
DX: G92.8 Other toxic encephalopathy (principal); J96.22 Acute and chronic respiratory failure with hypercapnia; J96.21 Acute and chronic respiratory failure with hypoxia; J44.1 Chronic obstructive pulmonary disease with (acute) exacerbation; G40.909 Epilepsy, unspecified, not intractable, without status epilepticus; I10 Essential (primary) hypertension; E78.5 Hyperlipidemia, unspecified; F17.210 Nicotine dependence, cigarettes, uncomplicated; Z88.0 Allergy status to penicillin; Z88.8 Allergy status to other drugs, medicaments and biological substances
CPT/HCPCS: 36415; 71045; 80048; 80053; 80164; 82140; 82803; 82947; 83735; 83880; 84145; 84484; 85025; 85379; 87637; 93005; 93010; 94640; 94660; 94664; 94762; 96372; 96374; 99285-25; A9270; G0378; J1650; J2919; J7512